=== PATIENT | female | born 1990 | race American Indian/Alaskan Native ===

== ENCOUNTER 2017-02-28 09:51 | Emergency (ER) | payer MEDICAID ==
[2017-02-28] MEDS ORDERED: ZOFRAN ODT PO ONE (11:29)
--- NOTE | 2017-02-28 11:35 | Emergency Department Report ---
Chief Complaint: Nausea/Vomiting/Diarrhea Stated Complaint: DIZZINESS/NAUSEATED - HPI History of Present Illness: 26 year old female presents to ED with N/V x3 days. patient states she is 10 weeks . patient is stable, neurologically intact. patient denies abdominal pain. - ROS Review of Systems: see HPI - Exam Vital Signs: Vital Signs 02/28/17 11:16 Temperature 98.1 F Pulse Rate 77 Respiratory 16 Rate Blood Pressure 147/83 O2 Sat by Pulse 97 Oximetry Physical Exam: General: no acute distress Abdominal: no abdominal tenderness. MSE screening note: Focused history and physical exam performed. Due to findings the following was ordered: ED Disposition for MSE Condition: Stable
[2017-02-28 11:50] LABS: Hematocrit 39.9 % (30.3-42.9); Hemoglobin 13.3 gm/dl (10.1-14.3); Mean Corpuscular HGB Conc 33 % (30-34); Mean Corpuscular Hemoglobin 30 pg (28-32); Mean Corpuscular Volume 91 fl (79-97); Platelet Count 380 K/mm3 (140-440); Red Blood Count 4.38 M/mm3 (3.65-5.03); Red Cell Distribution Width 13.5 % (13.2-15.2); White Blood Count 12.1 K/mm3 (4.5-11.0)
[2017-02-28 12:11] LABS: Anion Gap 19 mmol/L; BUN/Creatinine Ratio 22; Blood Urea Nitrogen 11 mg/dL (7-17); Calcium 9.6 mg/dL (8.4-10.2); Carbon Dioxide 25 mmol/L (22-30); Chloride 100.2 mmol/L (98-107); Glucose 92 mg/dL (65-100); Sodium 140 mmol/L (137-145)
[2017-02-28 12:14] LABS: Alanine Aminotransferase 9 units/L (7-56); Albumin 3.9 g/dL (3.9-5); Albumin/Globulin Ratio 0.9 %; Alkaline Phosphatase 47 units/L (35-129); Bilirubin,Direct < 0.2 mg/dL (0-0.2); Lipase 13 units/L (13-60); Total Protein 8.4 g/dL (6.3-8.2)
[2017-02-28 12:56] LABS: Bacteria,Urine 4+ /HPF (Negative); Bilirubin,Urine NEG (Negative); Blood,Urine NEG (Negative); Ketones,Urine 80 mg/dL (Negative); Leukocyte Esterase,Urine LG (Negative); Mucus,Urine 3+ /HPF; Nitrite,Urine NEG (Negative)
--- NOTE | 2017-02-28 14:25 | Ultrasound Report ---
ULTRASOUND OB LESS THAN 14 WEEKS - TRANSABDOMINAL AND TRANSVAGINAL INDICATION: Nausea, vomiting. Patient states she is 10 weeks . COMPARISON: None similar at this institution. FINDINGS: Transabdominal and transvaginal pelvic sonography performed in this patient with LMP of 12/25/2016 and estimated menstrual age of 9 weeks and 2 days. It demonstrates an anteverted, possibly slightly retroflexed gravid uterus estimated at 12.1 x 4 x 6.7 cm with a single, viable intrauterine gestation with heart rate of 171 beats per minute. Mean crown-rump length of 2.3 cm corresponds to 9 weeks and zero days. A 5 mm yolk sac also seen. Cervix closed. Approximately 1 cm nabothian cyst. Unremarkable bilateral maternal ovaries, approximately 2 x 1.6 x 2 cm on the right and 2.1 x 2.5 x 1.1 cm on the left. CONCLUSION: 1. Single, live intrauterine gestation with an ultrasound estimated age of 9 weeks and zero days and GRAHAM of 10/03/2017. 2. Other findings, as above. Thank you for the opportunity to participate in this patient's care.
[2017-02-28] MEDS ORDERED: NACL 0.9% 1000 ML 1,000 ML IV ONE (16:11)
[2017-02-28] MEDS ORDERED: ZOFRAN IV ONE (16:12)
--- NOTE | 2017-02-28 16:19 | Emergency Department Report ---
HPI - General Chief Complaint: Nausea/Vomiting/Diarrhea Time Seen by Provider: 02/28/17 15:35 - HPI HPI: She is a 26-year-old 001 who presents to ED at 10 weeks gestation complaining of nausea and vomiting for the past 2 days. Patient states she is unable to keep food or liquids down and she kissed erythema. Patient states her [employer] as Dr. Andres. She admits last is night. She denies fevers/chills/chest pain, shortness of breath, vaginal bleeding, abdominal pain, diarrhea or constipation ED Past Medical Hx - Past Medical History Previous Medical History?: No - Surgical History Past Surgical History?: No - Social History Smoking Status: Never Smoker Substance Use Type: None - Medications Home Medications: Home Medications Medication Instructions Recorded Confirmed Last Taken Type Doxylamine Succinate/Vit B6 2 each PO DAILY #40 tablet. 02/28/17 Unknown Rx [Diclegis Dr 10-10 mg Tablet] Nitrofurantoin Monohyd/M-Cryst 100 mg PO BID #14 capsule 02/28/17 Unknown Rx [Macrobid 100 mg Capsule] ED Review of Systems ROS: Stated complaint: DIZZINESS/NAUSEATED Other details as noted in HPI Constitutional: denies: chills, fever Eyes: denies: eye pain, eye discharge, vision change ENT: denies: ear pain, throat pain Respiratory: denies: cough, shortness of breath, wheezing Cardiovascular: denies: chest pain, palpitations Endocrine: no symptoms reported Gastrointestinal: nausea, vomiting. denies: abdominal pain, diarrhea Genitourinary: denies: urgency, dysuria, discharge Musculoskeletal: denies: back pain, joint swelling, arthralgia Skin: denies: rash, lesions Neurological: denies: headache, weakness, paresthesias Psychiatric: denies: anxiety, depression Hematological/Lymphatic: denies: easy bleeding, easy bruising Physical Exam - Physical Exam Vital Signs: Vital Signs 02/28/17 11:16 Temperature 98.1 F Pulse Rate 77 Respiratory 16 Rate Blood Pressure 147/83 O2 Sat by Pulse 97 Oximetry Physical Exam: GENERAL: Alert and oriented x3, no apparent distress, Normal Gait, atraumatic. HEAD: Head is normocephalic and a-traumatic. EYES: Extra ocular muscles are intact. Pupils are equal, round, and reactive to light and accommodation. NECK: Supple. Non edematous, No carotid bruits. No lymphadenopathy or thyromegaly. No C-spine tenderness LUNGS: Symetrical with respiration, No wheezing, no rales or crackles, CTAB. HEART: S1, S2 present, regular rate and rhythm without murmur, no rubs, no gallops. Non tender to palpation ABDOMEN: No organomegaly was noted,Positive bowel sounds, soft, and non- distended. . Nontender to palpation on all Quadrants, NO CVA tenderness. SKIN: Warm and dry, No lesions, No ulceration or induration present. ED Course Vital Signs 02/28/17 11:16 Temperature 98.1 F Pulse Rate 77 Respiratory 16 Rate Blood Pressure 147/83 O2 Sat by Pulse 97 Oximetry ED Medical Decision Making - Lab Data Result diagrams: 02/28/17 11:39 02/28/17 11:39 - Radiology Data Radiology results: report reviewed, image reviewed ULTRASOUND OB LESS THAN 14 WEEKS - TRANSABDOMINAL AND TRANSVAGINAL INDICATION: Nausea, vomiting. Patient states she is 10 weeks . COMPARISON: None similar at this institution. FINDINGS: Transabdominal and transvaginal pelvic sonography performed in this patient with LMP of 12/25/2016 and estimated menstrual age of 9 weeks and 2 days. It demonstrates an anteverted, possibly slightly retroflexed gravid uterus estimated at 12.1 x 4 x 6.7 cm with a single, viable intrauterine gestation with heart rate of 171 beats per minute. Mean crown-rump length of 2.3 cm corresponds to 9 weeks and zero days. A 5 mm yolk sac also seen. Cervix closed. Approximately 1 cm nabothian cyst. Unremarkable bilateral maternal ovaries, approximately 2 x 1.6 x 2 cm on the right and 2.1 x 2.5 x 1.1 cm on the left. CONCLUSION: 1. Single, live intrauterine gestation with an ultrasound estimated age of 9 weeks and zero days and GRAHAM of 10/03/2017. 2. Other findings, as above. Thank you for the opportunity to participate in this patient's care. Transcribed By: RS Dictated By: LYUBOV LOUIS MD Electronically Authenticated By: LYUBOV LOUIS MD Signed Date/Time: 02/28/17 5021 - Medical Decision Making 26-year-old female presents with UTI ED Course: Normal saline, Zofran and Rocephin administered to patient CBC, CMP, urinalysis and quantitative ordered. CBC shows mild alleviation of the white blood count, urinalysis positive for activity Discussed findings with the patient. Discussed patient will be discharged home on nausea vomiting medications as well as antibiotics for UTI Discussed the patient complete all doses of antibiotics Discussed patient did take her vitamins regularly. Vital signs are normal patient has no acute distress She states feeling much better and was able to tolerate by mouth challenge Patient states she'll follow-up with [employer] , Dr. Andres Critical care attestation.: If time is entered above; I have spent that time in minutes in the direct care of this critically ill patient, excluding procedure time. ED Disposition Clinical Impression: UTI (urinary tract infection) Qualifiers: Urinary tract infection type: acute cystitis Hematuria presence: with hematuria Qualified Code(s): N30.01 - Acute cystitis with hematuria Disposition: TO HOME OR SELFCARE Is pt being admited?: No Does the pt Need Aspirin: No Condition: Stable Instructions: Morning Sickness (ED), (ED), Hyperemesis Gravidarum (ED ), Urinary Tract Infection in Women (ED) Additional Instructions: Follow-up with Dr. Andres Taking medication as prescribed. His symptoms worsen or new symptoms arise this return to the ED immediately Prescriptions: Doxylamine Succinate/Vit B6 [Tess Barakat 10-10 mg Tablet] 2 each PO DAILY #40 tablet. Nitrofurantoin Monohyd/M-Cryst [Macrobid 100 mg Capsule] 100 mg PO BID #14 capsule Referrals: RONNELL ANDRES MD [Primary Care Provider] - 3-5 Days Forms: Work/School Release Form(ED) Time of Disposition: 17:18
[2017-02-28] MEDS ORDERED: ROCEPHIN 250 MG in NACL 0.9% 50 ML IV ONE (17:30)
[2017-02-28 18:22] VITALS: BP 142/88
== END 2017-02-28 17:30 | disposition home or self-care (01) ==
LOC: ED 09:51
DX: O23.31 Infections of other parts of urinary tract in pregnancy, first trimester (principal); N30.01 Acute cystitis with hematuria; Z3A.09 9 weeks gestation of pregnancy
CPT/HCPCS: 36415; 76801; 76817; 80048; 80074; 81001; 83690; 84702; 85027; 96365; 99284; J0696; J2405; J7030; Q0162

== ENCOUNTER 2017-09-26 05:19 | Inpatient (IN) | payer MEDICAID ==
--- NOTE | 2017-09-25 16:31 | History and Physical Report ---
History of Present Illness Date of examination: 09/26/17 History of present illness: Patient admitted for repeat section. Patient informed the risks of the surgery include bleeding possibly bleeding heavy enough to require blood transfusion, infection possible damage to bowel bladder ureter. Patient understands that due to her previous surgery she is an increased risks of adjacent organ damage. Patient's questions answered. Patient understands and desires to proceed. Menstrual History Regularity: regular Menses every: 28 days Duration: 3 LMP: 12/25/2016 LMP reliability: definite LMP character: normal test type: urine test Date: 02/16/2017 BC at conception: none Planned ? no EDC Calculations LMP: 10/01/2017 EDC Confirmation: 10/01/2017 Past History : 3 Term Births: 1 Premature Births: 0 Living Children: 1 Para: 1 Mult. Births: 0 Prev : 1 Prev. attempt? 0 Aborta: 1 Elect. Ab: 1 Spont. 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 of genital herpes: no Genetic History Congenital Heart Defect: Mom: no Dad: no Raymond Disease: Mom: no Dad: no Thalassemia Mom: no Dad: no Neural Tube Defect Mom: no Dad: no Down's Syndrome Mom: no Dad: no Chuy-Sachs Mom: no Dad: no Sickle Cell Disease/Trait Mom: no Dad: no Hemophilia Mom: no Dad: no Muscular Dystrophy Mom: no Dad: no Cystic Fibrosis Mom: no Dad: no [place] Chorea Mom: no Dad: no Mental Retardation Mom: no Dad: no Fragile X Mom: no Dad: no Other Genetic/Chromosomal Disorder Mom: no Dad: no Child w/other defect Mom: no Dad: no Current Allergies (reviewed today): No known allergies Past History Past Medical History: other (See HPI) Past Surgical History: 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 surgery, section, D&C, other (See HPI) DOOR REPAIRER BUS History: other (See HPI) Family/Genetic History: other (See HPI) Social history: other (See HPI) - Obstetrical History Expected Date of Delivery: 10/01/17 Actual Gestation: 39 Week(s) 2 Day(s) : 3 Para: 1 Hx # Term Pregnancies: 1 Number of Pregnancies: 0 Spontaneous Abortions: 0 Induced : 1 Number of Living Children: 1 Medications and Allergies Allergies Allergy/AdvReac Type Severity Reaction Status Date / Time meperidine [From Demerol] Allergy Hives Verified 09/26/17 05:26 Home Medications Medication Instructions Recorded Confirmed Last Taken Type Ferrous Sulfate [Feosol 325 MG tab] 325 mg PO BID #60 tablet 09/26/17 Unknown Rx Ibuprofen [Motrin 800 MG tab] 800 mg PO Q6H PRN #30 tablet 09/26/17 Unknown Rx Pnv No.103/Folic/Om3s/Fish Oil 1 each PO QDAY 09/26/17 09/26/17 09/24/17 History [ Gummies] oxyCODONE /ACETAMINOPHEN [Percocet 1 - 2 tab PO Q4H PRN #30 tablet 09/26/17 Unknown Rx 5/325 mg] - Physical Exam Breasts: Positive: deferred Cardiovascular: Regular rate Lungs: Positive: Normal air movement Abdomen: Positive: normal appearance, soft Genitourinary (Female): Positive: normal external genitalia Uterus: Positive: enlarged Anus/Rectum: Positive: normal perianal skin Extremities: Positive: normal - Obstetrical FHR: auscultation normal Results Result Diagrams: 09/26/17 06:00 All other labs normal. Assessment and Plan - Patient Problems (1) Maternal care due to uterine scar from previous surgery Current Visit: No Status: Acute Qualifiers: Previous surgery type: uterine scar from previous delivery Previous delivery type: low transverse Qualified Code(s): O34.211 - Maternal care for low transverse scar from previous delivery Plan to address problem: Patient informed the risks of the surgery include bleeding possibly bleeding heavy enough to require blood transfusion, infection possible damage to bowel bladder ureter. All questions answered. Patient agrees to proceed (2) with 39 completed weeks gestation Current Visit: No Status: Acute (3) Obesity affecting in third trimester Current Visit: No Status: Acute
[2017-09-26] MEDS ORDERED: PEPCID IV ONE (06:00)
[2017-09-26] MEDS ORDERED: BICITRA PO ONE (06:00)
[2017-09-26] MEDS ORDERED: PITOCin/NS 20 UNIT/1000ML DRIP 20 UNITS/1,000 ML BAG IV SCH ×2 (06:00→11:00)
[2017-09-26] MEDS ORDERED: LACTATED RINGERS 1,000 ML IV SCH (06:00)
[2017-09-26] MEDS ORDERED: REGLAN IV ONE (06:00)
[2017-09-26 06:27] LABS: Basophils % (Auto) 0.3 % (0.0-1.8); Eosinophils # (Auto) 0.1 K/mm3 (0.0-0.4); Eosinophils % (Auto) 0.8 % (0.0-4.3); Hematocrit 28.1 % (30.3-42.9); Hemoglobin 9.6 gm/dl (10.1-14.3); Lymphocytes # (Auto) 2.4 K/mm3 (1.2-5.4); Lymphocytes % (Auto) 22.2 % (13.4-35.0); Mean Corpuscular HGB Conc 34 % (30-34); Mean Corpuscular Hemoglobin 31 pg (28-32); Mean Corpuscular Volume 91 fl (79-97); Monocytes # (Auto) 0.7 K/mm3 (0.0-0.8); Monocytes % (Auto) 6.4 % (0.0-7.3); Platelet Count 393 K/mm3 (140-440); Red Blood Count 3.08 M/mm3 (3.65-5.03); Red Cell Distribution Width 16.1 % (13.2-15.2)
[2017-09-26] MEDS ORDERED: ANCEF/STERILE WATER 2 GM/20 ML 2 GM/20 ML SYRINGE IV NR (07:00)
--- NOTE | 2017-09-26 07:20 | Anesthesia Day of Surgery ---
Anesthesia Day of Surgery - Day of Surgery Patient Examined: Yes Patient H&P Reviewed: Yes Patient is NPO: Yes
--- NOTE | 2017-09-26 07:20 | Anesthesia Consultation ---
Anesthesia Consult and Med Hx Date of service: 09/26/17 - Airway Anesthetic Teeth Evaluation: Good ROM Head & Neck: Adequate Mental/Hyoid Distance: Adequate Mallampati Class: Class III Intubation Access Assessment: Possibly Difficult - Pre-Operative Health Status ASA Pre-Surgery Classification: ASA3 Proposed Anesthetic Plan: Epidural, Spinal - Pulmonary Hx Asthma: No COPD: No Hx Pneumonia: No - Cardiovascular System Hx Hypertension: No - Central Nervous System Hx Seizures: No Hx Psychiatric Problems: No - Endocrine Hx Renal Disease: No Hx End Stage Renal Disease: No Hx Hypothyroidism: No Hx Hyperthyroidism: No - Hematic Hx Anemia: Yes (younger) Hx Sickle Cell Disease: No - Other Systems Hx Alcohol Use: No Hx Obesity: Yes (morbid obesity, BMI 48.8)
[2017-09-26] MEDS ORDERED: PHENERGAN PR PRN (07:30)
[2017-09-26] MEDS ORDERED: NEO SYNEPHRINE/NS Syringe(OR USE) IV ONE ×2 (07:58→08:13)
[2017-09-26] MEDS ORDERED: SODIUM CHLORIDE FLUSH SYRINGE 10 ML IV PRN ×2 (08:00→11:00)
[2017-09-26] MEDS ORDERED: NARCAN 0.4 MG/1 ML IV PRN ×2 (08:00→11:00)
[2017-09-26] MEDS ORDERED: ZOFRAN IV PRN ×2 (08:00→11:00)
[2017-09-26] MEDS ORDERED: TORADOL IV PRN (08:00)
[2017-09-26] MEDS ORDERED: PHENERGAN PO PRN (08:00)
[2017-09-26] MEDS ORDERED: BENADRYL IV PRN (08:00)
[2017-09-26] MEDS ORDERED: DILAUDID IV PRN (08:00)
[2017-09-26] MEDS ORDERED: ZOFRAN ONE (08:13)
[2017-09-26] MEDS ORDERED: METHERGINE IM ONE (08:18)
[2017-09-26] MEDS ORDERED: WATER FOR IRRIG STERILE IR ONE (08:25)
[2017-09-26] MEDS ORDERED: NACL 0.9% IR ONE (08:25)
[2017-09-26] MEDS ORDERED: MORPHINE ONE (08:27)
[2017-09-26] MEDS ORDERED: SUBLIMAZE ONE (08:29)
--- NOTE | 2017-09-26 08:54 | Operative Report ---
Operative Report Operative Report: Date of procedure: 09/26/2017 Pre-operative diagnosis: Intrauterine at 39 weeks with previous section Post-operative diagnosis: Same plus pelvic adhesive disease Procedure name(s): Repeat low transverse section with lysis of adhesions Surgeon: Femi Mcintosh MD Bombsight Specialist: NORMA Anesthesia: Spinal EBL: 800 mL Complications: Moderate uterine atony Findings: By the patient had adhesions of anterior abdominal wall to the anterior uterus and omentum. Normal tubes and ovaries bilaterally. Female infant weighing 7 lbs. 5 oz. Apgars 8 at 1 minute and 9 at 5 minutes Specimen(s): None Procedure: The patient was brought to the operating room. A spinal was placed without any complications. She was then placed in left lateral tilt. Prepped and draped in the usual sterile manner. After testing for adequate anesthesia level, a Pfannenstiel incision was made through her previous scar. This incision was taken down to the fascia. The fascia was then nicked in the midline. This incision was extended out laterally with Tristan scissors. The fascia was then sharply and bluntly from the underlying rectus muscles. The rectus muscles were bluntly and sharply . The peritoneum was then entered with the rectifier operator's fingers. Incision was taken down from the omentum and anterior abdominal wall and anterior uterus. This incision was spread vertically with care not to damage the bladder below. The bladder flap was then formed sharply and bluntly with Metzenbaum scissors. The Kory self-retaining tractor was then placed without any difficulty. A transverse incision was made in lower uterine segment. This incision was extended laterally with the operators fingers. The amniotic sac was then entered bluntly with the rectifier operator's fingers. The infant was delivered from the vertex position. Bulb suction on the mother's abdomen. Cord was double clamped and cut. The was then passed to the nursery personnel who were in attendance. The above scores were given by the nursery personnel. The placenta was then bluntly removed. The uterus was then externalized and wiped clean the remaining products. The uterine incision was closed in layers. The first incision was closed in a locking manner using 0 Vicryl. This was followed by imbricating stitch also with 0 Vicryl. This closure was hemostatic. The bladder flap was copiously irrigated and found to be hemostatic. The pelvis was copiously irrigated and found to be hemostatic. The uterus was then placed back to the patient's abdomen. The retractors were removed. The rectus muscles were inspected and found to be hemostatic. The fascia was then closed in a running manner using 0 Vicryl. This incision was hemostatic irrigation Bovie. The skin was reapproximated with 4-0 Vicryl subcuticularly. The patient tolerated procedure well. Her urine was clear. The infant was admitted to the well baby nursery. The patient was accompanied to recovery room in good condition. Instrument count correct x3
[2017-09-26] MEDS ORDERED: ANCEF/NS 1 GM/50 ML 1 GM/50 ML BAG IV SCH (10:42)
[2017-09-26] MEDS ORDERED: LANSINOH TP PRN (11:00)
[2017-09-26] MEDS ORDERED: TUCKS PAD TP PRN (11:00)
[2017-09-26] MEDS: ceFAZolin 1 GM in NACL 0.9% 20 ML IV SCH ×2 (16:10→23:41)
[2017-09-26] MEDS: D5LR 1,000 ML IV SCH ×2 (16:25→23:40)
[2017-09-26] MEDS: TORADOL IV SCH (17:36)
[2017-09-26 21:47] LABS: Hematocrit 29.6 % (30.3-42.9); Hemoglobin 9.9 gm/dl (10.1-14.3)
[2017-09-26] MEDS ORDERED: MILK OF MAGNESIA PO PRN (22:00)
[2017-09-26] MEDS ORDERED: BENADRYL PO ONE (23:53)
[2017-09-27] MEDS: MOTRIN PO PRN ×3 (00:10→20:39)
[2017-09-27] MEDS: NORCO 5/325 PO PRN ×3 (00:10→20:38)
[2017-09-27] MEDS ORDERED: BENADRYL PO PRN (00:22)
[2017-09-27] MEDS: TORADOL IV SCH (05:33)
--- NOTE | 2017-09-27 07:51 | Progress Note ---
Assessment and Plan Patient doing well, c/o normal incision pain. encouraged use of pain medication as needed. Michel venegas, VSSAF, H&H 9.9/29.6 (exiting anemia). Continue postop pathway. - Patient Problems (1) delivery delivered Current Visit: Yes Status: Acute Subjective - Subjective Date of service: 09/27/17 Principal diagnosis: postop day #1 s/p repeat c/s Patient reports: appetite normal, voiding normally, pain well controlled, flatus , ambulating normally, no dizzy ambulation, no nauseated [place]: in NICU Objective - Vital Signs Latest vital signs: Vital Signs Temp Pulse Resp BP BP Pulse Ox 09/27/17 00:10 18 09/26/17 23:20 98.6 F 81 20 118/73 09/26/17 20:40 98.4 F 76 18 128/74 09/26/17 16:55 98.3 F 80 18 124/63 09/26/17 10:10 98.2 F 72 18 117/67 97 09/26/17 09:52 97.7 F 09/26/17 09:45 70 23 132/70 99 09/26/17 09:40 70 22 129/75 100 09/26/17 09:35 69 21 128/79 100 09/26/17 09:30 70 22 130/78 100 09/26/17 09:25 71 20 128/78 100 09/26/17 09:22 20 09/26/17 09:20 15 116/80 100 09/26/17 09:15 76 11 L 121/74 100 09/26/17 09:10 79 21 118/72 100 09/26/17 09:05 77 23 120/73 100 09/26/17 09:00 80 22 134/80 100 09/26/17 08:55 88 24 136/78 100 09/26/17 08:49 89 18 124/67 94 09/26/17 08:48 97.9 F 92 H 16 124/67 100 Intake and Output 09/26/17 09/26/17 09/27/17 15:59 23:59 07:59 Intake Total 1400 1626.25 Output Total 300 1100 Balance 1100 526.25 Intake: IV 1400 906.25 D5lr 1,000 ml @ 125 mls/ 906.25 hr IV DIRECT SCOTT Rx#: [id number] Oral 480 Intake, Free Water 240 Output: Urine 300 1100 Indwelling Catheter 1100 Other: Total, Intake Amount 120 Total, Output Amount 800 Estimated Blood Loss 700 - Exam Breasts: Present: normal Cardiovascular: Present: Regular rate Lungs: Present: Clear to auscultation, Normal air movement Abdomen: Present: normal appearance, soft Vulva: both: normal Uterus: Present: normal, firm, fundal height at umbilicus Incision: Present: normal, dry, dressed (rn to remove during AM care) - Labs Labs: Abnormal lab results 09/26/17 Range/Units 21:21 Hgb 9.9 L (10.1-14.3) gm/dl Hct 29.6 L (30.3-42.9) %
[2017-09-27] MEDS: PRENATAL VITAMIN PO SCH (12:59)
[2017-09-27] MEDS: FEOSOL PO SCH (12:59)
[2017-09-28] MEDS: MOTRIN PO PRN ×2 (04:08→19:00)
[2017-09-28] MEDS: NORCO 5/325 PO PRN ×2 (04:08→19:00)
--- NOTE | 2017-09-28 08:23 | Progress Note ---
Assessment and Plan patient c/o back pain in mid back around area where epidural was placed. encouraged patient to ambulate and take warm shower, continue using pain medication as needed. VSSAF, H&H stable, no s/s anemia, lochia scant. Wound care reviewed - incision D&I. Continue current postop pathway, anticipate d/c home tomorrow unless patient requests sooner. - Patient Problems (1) delivery delivered Current Visit: Yes Status: Acute Subjective - Subjective Date of service: 09/28/17 Principal diagnosis: postop day #2 s/p repeat c/s Patient reports: appetite normal, voiding normally, pain well controlled, flatus , ambulating normally, no dizzy ambulation, no nauseated : doing well, nursing well Objective - Vital Signs Latest vital signs: Vital Signs Temp Pulse Resp BP BP Pulse Ox 09/28/17 07:20 98.1 F 91 H 20 126/75 97 09/28/17 04:08 18 09/28/17 00:00 98.2 F 94 H 20 115/61 09/27/17 20:39 18 09/27/17 20:38 18 09/27/17 08:21 98.1 F 101 H 18 130/75 98 Intake and Output 09/27/17 09/28/17 09/28/17 23:59 07:59 15:59 Intake Total 240 Balance 240 Intake: Oral 240 Other: Total, Intake Amount 240 # Voids Void 1 1 - Exam Breasts: Present: normal, Cardiovascular: Present: Regular rate Lungs: Present: Clear to auscultation, Normal air movement Abdomen: Present: normal appearance, soft Vulva: both: normal Uterus: Present: normal, firm, fundal height at umbilicus Extremities: Present: normal Incision: Present: normal, dry, intact
[2017-09-28] MEDS: PRENATAL VITAMIN PO SCH (10:38)
[2017-09-28] MEDS: FEOSOL PO SCH (10:38)
[2017-09-29] MEDS: NORCO 5/325 PO PRN (05:25)
[2017-09-29] MEDS: MOTRIN PO PRN ×3 (05:26→17:59)
[2017-09-29] MEDS: PRENATAL VITAMIN PO SCH (09:30)
[2017-09-29] MEDS: FEOSOL PO SCH (09:30)
--- NOTE | 2017-09-29 09:35 | Discharge Summary ---
Providers - Providers Date of Admission: 09/26/17 05:19 Date of discharge: 09/29/17 Attending physician: RONNELL ANDRES 09/26/17 10:42 Consult to Lather Apprentice [CONS] Routine Reason For Exam: Primary care physician: RONNELL ANDRES Hospitalization Reason for admission: section Procedure: section Episiotomy: none Incision: normal, dry, intact Other procedures: none complications: none Discharge diagnosis: IUP at term delivered baby: female Hospital course: Patient was admitted and underwent above procedure without complications. Her post operative course was benign she was afebrile throughout. Patient postoperative day 1 hematocrit was in an acceptable range. Patient had no orthostatic symptoms. Patient was tolerating regular diet and voiding without difficulty at time of discharge. Patient incision was healing well without evidence of infection. Patient is both breast and bottlefeeding and desires Mirena for control . Condition at discharge: Good Disposition: DC-01 TO HOME OR SELFCARE - Discharge Diagnoses (1) Maternal care due to uterine scar from previous surgery Status: Resolved Qualifiers: Previous surgery type: uterine scar from previous delivery Previous delivery type: low transverse Qualified Code(s): O34.211 - Maternal care for low transverse scar from previous delivery (2) with 39 completed weeks gestation Status: Resolved (3) Obesity affecting in third trimester Status: Resolved Plan - Discharge Medications Prescriptions: Ferrous Sulfate [Feosol 325 MG tab] 325 mg PO BID #60 tablet Ibuprofen [Motrin 800 MG tab] 800 mg PO Q6H PRN #30 tablet PRN Reason: Pain oxyCODONE /ACETAMINOPHEN [Percocet 5/325 mg] 1 - 2 tab PO Q4H PRN #30 tablet PRN Reason: Pain, Moderate - Provider Discharge Summary Activity: routine, no sex for 6 weeks, no heavy lifting 4 weeks, no strenuous exercise Diet: routine Instructions: routine Additional instructions: [] Smoking cessation referral if applicable(refer to patient education folder for contact #) [] Refer to [facility] Booklet Call your doctor immediately for: * Fever > 100.5 * Heavy vaginal bleeding ( >1 pad per hour) * Severe persistent headache * Shortness of breath * Reddened, hot, painful area to leg or breast * Drainage or odor from incision. * Keep incision clean and dry at all times and follow doctor's instructions regarding bathing/showering Patient follow-up in office in 1 week for postop appointment. - Follow up plan Follow up: RONNELL ANDRES MD [Primary Care Provider] - 7 Days
[2017-09-29 10:43] VITALS: BP 130/49
== END 2017-09-29 18:15 | disposition home or self-care (01) | DRG 765 ==
LOC: APU 05:19 → OB 10:09
PROVIDERS: ADMIT Obstetrics & Gynecology; ATTEND Obstetrics & Gynecology
PROC: 10D00Z1 Extraction of Products of Conception, Low, Open Approach (ICD-10-PCS; principal; 2017-09-26)
DX: O34.211 Maternal care for low transverse scar from previous cesarean delivery (principal); Z68.42 Body mass index [BMI] 45.0-49.9, adult; N73.6 Female pelvic peritoneal adhesions (postinfective); O99.02 Anemia complicating childbirth; D64.9 Anemia, unspecified; O99.214 Obesity complicating childbirth; E66.01 Morbid (severe) obesity due to excess calories; Z3A.39 39 weeks gestation of pregnancy; Z37.0 Single live birth; Z88.8 Allergy status to other drugs, medicaments and biological substances
CPT/HCPCS: 36415; 85014; 85018; 85025; 86592; 86850; 86900; 86901; 99211; C1765; G0463; J0690; J1885; J2210; J2270; J2370; J2405; J2590; J2765; J3010; J7120; J7121